=== PATIENT | male | born 1975 | race Caucasian/White ===

== ENCOUNTER 2016-12-10 23:01 | Emergency (ER) | payer SELFPAY ==
[2016-12-10 23:03] VITALS: BP 151/93; PULSE 10; PULSE 70; RESP 16; TEMP 98.5; O2SAT 97
[2016-12-10] MEDS ORDERED: SODIUM CHLOR 0.9% 1000 ML INJ 1,000 ML IV SCH (23:41)
[2016-12-10] MEDS ORDERED: ONDANSETRON HCL 4 MG/2 ML VIAL IVP ONE (23:45)
[2016-12-10] MEDS ORDERED: SODIUM CHLORIDE 0.9% FLUSH 10 ML FLUSH IV FLUSH PRN (23:45)
[2016-12-10 23:58] VITALS: O2SAT 98
[2016-12-11 00:05] LABS: AUTOMATED NEUTROPHIL # 9.4 TH/MM3 (1.8-7.7); BASOPHIL # 0.1 TH/MM3 (0-0.2); BASOPHIL % 0.5 % (0.0-2.0); EOSINOPHIL % 19.3 % (0.0-4.0); HEMATOCRIT 42.4 % (39.0-51.0); HEMO FLAGS DIFF FINAL; LYMPH % 14.9 % (9.0-44.0); LYMPHOCYTE # 2.3 TH/MM3 (1.0-4.8); MEAN CELL VOLUME 85.3 FL (80.0-100.0); MEAN CORPUSCULAR HEMOGLOBIN 29.5 PG (27.0-34.0); MEAN CORPUSCULAR HGB CONC 34.6 % (32.0-36.0); MONO % 4.8 % (0.0-8.0); NEUT % 60.5 % (16.0-70.0); PLATELET COUNT 218 TH/MM3 (150-450); RED BLOOD COUNT 4.97 MIL/MM3 (4.50-5.90); RED CELL DISTRIBUTION WIDTH 13.1 % (11.6-17.2); WHITE BLOOD COUNT 15.5 TH/MM3 (4.0-11.0)
[2016-12-11 00:22] LABS: ALT (GPT) 23 U/L (12-78); ANION GAP 6 MEQ/L (5-15); AST (GOT) 16 U/L (15-37); BICARBONATE 28.9 MEQ/L (21.0-32.0); BLOOD UREA NITROGEN 17 MG/DL (7-18); CHLORIDE 105 MEQ/L (98-107); GLOMERULAR FILTRATION RATE 80 ML/MIN (>89); SODIUM (NA) 140 MEQ/L (136-145)
[2016-12-11 00:24] LABS: ALKALINE PHOSPHATASE 53 U/L (45-117); TOTAL BILIRUBIN ADULT 0.5 MG/DL (0.2-1.0)
[2016-12-11] MEDS ORDERED: IOHEXOL 350 MG/ML 10 ML VIAL (for RAD DIAG) IV ONE (00:52)
--- NOTE | 2016-12-11 00:57 | RADRPT ---
EXAM DATE/TIME: 12/11/2016 00:31 [place] COMPARISON: No previous studies available for comparison. INDICATIONS : Right lower quadrant pain. Elevated white blood count. IV CONTRAST: 97 cc Omnipaque 350 (iohexol) IV ORAL CONTRAST: No oral contrast ingested. RADIATION DOSE: 10.87 CTDIvol (mGy) MEDICAL HISTORY : None SURGICAL HISTORY : None. ENCOUNTER: Initial ACUITY: 1 day PAIN SCALE: 7/10 LOCATION: Right lower quadrant TECHNIQUE: Volumetric scanning of the abdomen and pelvis was performed. Using automated exposure control and ad justment of the mA and/or kV according to patient size, radiation dose was kept as low as reasonably achievable to obtain optimal diagnostic quality images. DICOM format image data is available electro nically for review and comparison. FINDINGS: LOWER LUNGS: The visualized lower lungs are clear except for a small 3 mm noncalcified pulmonary nodule in the rig ht lower lobe best seen on image #3. LIVER: Homogeneous density without lesion. There is no dilation of the biliary tree. No calcified gallston es. The gallbladder is decompressed. SPLEEN: Normal size without lesion. PANCREAS: Within normal limits. KIDNEYS: Normal in size and shape. There is no mass, stone or hydronephrosis. ADRENAL GLANDS: Within normal limits. VASCULAR: There is no aortic aneurysm. BOWEL/MESENTERY: Ascitic fluid is noted surrounding portions of the liver and spleen as well as the right paracolic gu tter and right lower quadrant. The distal ileum is abnormal appearance with wall thickening and infla mmatory change. There several small air-fluid levels. There is high density material in the distal sm all bowel. There is a small amount of surrounding fluid. Multiple diverticula are noted scattered in the colon. There is no evidence of free air. There is apparent normal appendix. ABDOMINAL WALL: Within normal limits. RETROPERITONEUM: There is no lymphadenopathy. BLADDER: No wall thickening or mass. REPRODUCTIVE: Within normal limits. INGUINAL: There is no lymphadenopathy or hernia. MUSCULOSKELETAL: Within normal limits for patient age. CONCLUSION: 1. Abnormal distal ileum with wall thickening and surrounding inflammatory change. A small amount of free fluid is present in this region as well as around the liver and spleen. These findings are most characteristic of inflammatory bowel disease. 2. 3 mm noncalcified pulmonary nodule in the right lower lobe which is a nonspecific finding but like ly benign. The findings described above include a newly detected solid pulmonary nodule of <4 mm aver age diameter. Guidelines from the Fleischner Society for the follow-up and management of newly detect ed indeterminate pulmonary nodules in persons >34 years old depend on nodule size (average of length and width) and underlying risk factors (including smoking and other risk factors). Please consider t he following recommendations after clinical assessment of risk factors. For 4 mm nodules: In low ris k patients, no follow-up needed. In high risk patients, follow-up CT at 12 months; if unchanged, no further follow-up. Maxx Joya MD on December 11, 2016 at 0:48 Board Certified Radiologist. This report was verified electronically.
[2016-12-11] MEDS ORDERED: metroNIDAZOLE 500 MG TAB PO ONE (01:15)
[2016-12-11] MEDS ORDERED: PIPERACIL-TAZO 3.375 GM PREMIX 50 ML IV ONE (01:15)
[2016-12-11] MEDS ORDERED: CIPROFLOXACIN 500 MG TAB PO ONE (01:15)
[2016-12-11] MEDS ORDERED: METR-1 PO (01:24)
[2016-12-11] MEDS ORDERED: CIPR-9 PO (01:24)
--- NOTE | 2016-12-11 01:26 | PD ---
HPI Chief Complaint: GI Complaint Time Seen by Provider: 23:35 Travel History International Travel<30 days: No Contact w/Intl Traveler<30days: No Traveled to known affect area: No History of Present Illness HPI 41-year-old male arrives to ER with 1-1/2 days of abdominal pain. He is also had diarrhea. The pain became quite a bit worse over the last 12-18 hours. He notes yesterday he ate at a [employer] and is concerned the food may have been spoiled however the patient's friend ate the same food and has no symptoms. The patient reports diarrhea numerous episodes, nonbloody, without fever. He describes periumbilical abdominal pain of moderate severity. The pain is slightly worse with palpation. The pain comes and goes at 10 minute intervals apparently. No similar prior episodes. The patient is otherwise healthy. [facility] Past Medical History Medical History: Denies Significant Hx Diminished Hearing: No Past Surgical History Eye Surgery: Yes Social History Alcohol Use: Yes (beer) Tobacco Use: No (never) Substance Use: No Allergies-Medications (Allergen,Severity, Reaction): Coded Allergies: No Known Allergies (Unverified , 12/10/16) Reported Meds & Prescriptions Reported Meds & Active Scripts Active Cipro (Ciprofloxacin HCl) 500 Mg Tab 500 Mg PO BID 14 Days Flagyl (Metronidazole) 500 Mg Tab 500 Mg PO TID 14 Days Review of Systems Except as stated in HPI: all other systems reviewed are Neg Physical Exam Narrative GENERAL: 41 yo M, WNWD, well-nourished well-developed, speaking Citizen [place], formal translation services offered however the patient's friend is fluent bilingually and patient prefers friend to translate SKIN: Focused skin assessment warm/dry. HEAD: Atraumatic. Normocephalic. EYES: Pupils equal and round. No scleral icterus. No injection or drainage. ENT: No nasal bleeding or discharge. Mucous membranes pink and moist. NECK: Trachea midline. No JVD. CARDIOVASCULAR: Regular rate and rhythm. No murmur appreciated. RESPIRATORY: No accessory muscle use. Clear to auscultation. Breath sounds equal bilaterally. GASTROINTESTINAL:Soft. Diffuse mild tenderness. MUSCULOSKELETAL: No obvious deformities. No clubbing. No cyanosis. No edema. NEUROLOGICAL: Awake and alert. No obvious cranial nerve deficits. Motor grossly within normal limits. Normal speech. PSYCHIATRIC: Appropriate mood and affect; insight and judgment normal. Data Data Last Documented VS Vital Signs Date Time Temp Pulse Resp B/P Pulse Ox O2 Delivery O2 Flow Rate FiO2 12/11/16 02:09 60 20 140/90 96 Room Air 12/10/16 23:03 98.5 VS reviews Orders Complete Blood Count With Diff (12/10/16 23:41) Comprehensive Metabolic Panel (12/10/16 23:41) Lipase (12/10/16 23:41) Iv Access Insert/Monitor (12/10/16 23:41) Ecg Monitoring (12/10/16 23:41) Oximetry (12/10/16 23:41) Ondansetron Inj (Zofran Inj) (12/10/16 23:45) Sodium Chlor 0.9% 1000 Ml Inj (Ns 1000 M (12/10/16 23:41) Sodium Chloride 0.9% Flush (Ns Flush) (12/10/16 23:45) Ct Abd/Pel W Iv Contrast(Rout) (12/11/16 ) Iohexol 350 Inj (Omnipaque 350 Inj) (12/11/16 00:52) Piperacil-Tazo 3.375 Gm Premix (Zosyn 3. (12/11/16 01:15) Mandatory Outpatient Referral (12/11/16 01:14) Metronidazole (Flagyl) (12/11/16 01:15) Ciprofloxacin (Cipro) (12/11/16 01:15) Labs Laboratory Tests Test 12/10/16 23:55 White Blood Count 15.5 TH/MM3 Red Blood Count 4.97 MIL/MM3 Hemoglobin 14.7 GM/DL Hematocrit 42.4 % Mean Corpuscular Volume 85.3 FL Mean Corpuscular Hemoglobin 29.5 PG Mean Corpuscular Hemoglobin 34.6 % Concent Red Cell Distribution Width 13.1 % Platelet Count 218 TH/MM3 Mean Platelet Volume 8.1 FL Neutrophils (%) (Auto) 60.5 % Lymphocytes (%) (Auto) 14.9 % Monocytes (%) (Auto) 4.8 % Eosinophils (%) (Auto) 19.3 % Basophils (%) (Auto) 0.5 % Neutrophils # (Auto) 9.4 TH/MM3 Lymphocytes # (Auto) 2.3 TH/MM3 Monocytes # (Auto) 0.7 TH/MM3 Eosinophils # (Auto) 3.0 TH/MM3 Basophils # (Auto) 0.1 TH/MM3 CBC Comment DIFF FINAL Differential Comment Sodium Level 140 MEQ/L Potassium Level 4.0 MEQ/L Chloride Level 105 MEQ/L Carbon Dioxide Level 28.9 MEQ/L Anion Gap 6 MEQ/L Blood Urea Nitrogen 17 MG/DL Creatinine 1.03 MG/DL Estimat Glomerular Filtration 80 ML/MIN Rate Random Glucose 114 MG/DL Calcium Level 9.0 MG/DL Total Bilirubin 0.5 MG/DL Aspartate Amino Transf 16 U/L (AST/SGOT) Alanine Aminotransferase 23 U/L (ALT/SGPT) Alkaline Phosphatase 53 U/L Total Protein 7.4 GM/DL Albumin 3.6 GM/DL Lipase 113 U/L [facility] Medical Decision Making Medical Screen Exam Complete: Yes Emergency Medical Condition: Yes Differential Diagnosis Gastritis, pancreatitis, appendicitis, acute cholecystitis, ascending cholangitis, AAA, perforated viscous, mesenteric ischemia, hepatitis, cystitis, hydronephrosis/hydroureter/nephroureter calculus, mesenteric adenitis, biliary colic Narrative Course CBC & BMP Diagram 12/10/16 23:55 LFTs and lipase normal Last 24 hours Impressions Abdomen/Pelvis CT 12/11/16 0000 Signed Impressions: Service Date/Time: December 00:31 - CONCLUSION: 1. Abnormal distal ileum with wall thickening and surrounding inflammatory change. A small amount of free fluid is present in this region as well as around the liver and spleen. These findings are most characteristic of inflammatory bowel disease. 2. 3 mm noncalcified pulmonary nodule in the right lower lobe which is a nonspecific finding but likely benign. The findings described above include a newly detected solid pulmonary nodule of <4 mm average diameter. Guidelines from the Fleischner Society for the follow-up and management of newly detected indeterminate pulmonary nodules in persons >34 years old depend on nodule size (average of length and width) and underlying risk factors (including smoking and other risk factors). Please consider the following recommendations after clinical assessment of risk factors. For 4 mm nodules: In low risk patients, no follow-up needed. In high risk patients, follow-up CT at 12 months; if unchanged, no further follow-up. Maxx Joya MD This case was discussed with on-call gastroenterology. The patient is hemodynamically stable. He is tolerating oral hydration. He can follow-up as an outpatient tomorrow. He simply has to make the phone call and schedule the appointment for colonoscopy. They're willing to see him. We will send him home with Cipro and Flagyl. Return precautions discussed. Patient agreeable with plan and prefers to go home rather than stay in the hospital. He feels confident that he'll be able make an appointment despite the language barrier as his friend is fluent. Diagnosis Primary Impression: Abdominal pain Qualified Code: R10.9 - Abdominal pain, unspecified location Additional Impressions: Pulmonary nodule Diarrhea Qualified Code: R19.7 - Diarrhea, unspecified type Referrals: Suma Ball MD 1 day [facility] call for appointment CALL TO ESTABLISH FOLLOW UP FOR CT CHEST TO EVALUATE PULMONARY NODULE Additional Instructions: You have a choice when it comes to health care, and we are glad that you chose [facility]. Hopefully, we have met your expectations on today's visit. You are welcome to return to [facility] at any time, as we are committed to meeting the health care needs of our community. YOUR CT SCAN REVEALS A PULMONARY NODULE. A REPEAT CT SCAN IN 12 MONTHS IS RECOMMENDED TO BE CERTAIN THE NODULE DOES NOT INCREASE IN SIZE. Med/Other Pt SpecificInfo: Prescription(s) given Scripts Ciprofloxacin (Cipro)500 Mg [id number] Mg PO BID 14 Days Ref 0 Prov:Yoseph Brooks MD 12/11/16 Metronidazole (Flagyl)500 Mg [id number] Mg PO TID 14 Days Ref 0 Prov:Yoseph Brooks MD 12/11/16 Disposition: DISCHARGE HOME Condition: Stable Yoseph Brooks MD Dec 11, 2016 01:26
[2016-12-11 02:09] VITALS: BP 140/90; PULSE 60; RESP 20; O2SAT 96
== END 2016-12-11 02:11 | disposition home or self-care (01) ==
LOC: NEPE 23:01
DX: R10.9 Unspecified abdominal pain (principal); R19.7 Diarrhea, unspecified; R91.1 Solitary pulmonary nodule
CPT/HCPCS: 74177; 80053; 83690; 85025; 96361; 96374; 96375; 99285; J2405; J2543; J7030; Q9967